=== PATIENT | male | born 1940 | race Caucasian/White ===

== ENCOUNTER 2016-07-31 08:17 | Day surgery (SDC) | payer MEDICARE, OTHER ==
[~2016-07-31 08:17] MED LIST: LISINOPRIL10 M1 PO; MULTIVITAMINS1 EAC7 PO; PROTONIX40 M2 PO; SYNTHROID50 MC1 PO
[2016-07-31 09:07] LABS: BASO % 1.2 % (0-2); BASO ABSOLUTE COUNT 0.1 tho/cmm (0.0-0.2); EOS % 3.5 % (0-7); EOSINOPHIL ABSOLUTE COUNT 0.2 tho/cmm (0.0-0.7); HCT-HEMATOCRIT 40.5 % (36.0-53.5); HGB-HEMOGLOBIN 12.9 gm/dl (13.5-17.0); IMMATURE GRANULOCYTES ABSOLUTE 0.01 tho/cmm (0-0.03); IMMATURE GRANULOCYTES PERCENT 0.2 % (0-0.3); LYMPH % 22.5 % (20-45); LYMPH ABSOLUTE COUNT 1.2 tho/cmm (0.8-4.5); MCH (MEAN CORPUSCULAR HGB) 28.2 pg (28.0-32.0); MCHC MEAN CORPUSCULAR HGB CONC 31.9 % (32.0-36.0); MCV (MEAN CELL VOLUME) 88.6 fl (82.0-96.0); MEAN PLATELET VOLUME 10.2 cmc (9.4-12.4); MONO % 11.7 % (0-12); MONOCYTE ABSOLUTE COUNT 0.6 tho/cmm (0.0-1.2); NEUTROPHIL ABSOLUTE COUNT 3.2 tho/cmm (1.6-8.0); NEUTROPHIL-AUTOMATED 3.2 tho/cmm (1.6-8.0); NEUTROPHILS % 60.9 % (40-80); PLATELET COUNT 138 tho/cmm (150-450); RED BLOOD COUNT 4.57 mil/cmm (4.40-5.70); RED CELL DISTRIBUTION WIDTH 20.5 % (12.4-16.4); WHITE BLOOD COUNT 5.2 tho/cmm (4.0-10.0)
[2016-07-31 09:10] LABS: INR 0.9 INR (0.9-1.1)
[2016-07-31 09:21] LABS: ALB/GLOB RATIO 0.7 (0.8-2.0); ALBUMIN 3.1 g/dl (3.5-5.0); ALKALINE PHOSPHATASE 175 U/L (33-138); ALT/SGPT 32 U/L (12-78); ANION GAP 10 mmol/L (0-20); AST/SGOT 36 U/L (10-40); BILIRUBIN,TOTAL 1.2 mg/dl (0.0-1.5); BLOOD UREA NITROGEN 11 mg/dl (6-24); CALCIUM 8.6 mg/dl (8.5-10.5); CARBON DIOXIDE-VENOUS 26 mmol/L (22-32); CHLORIDE 111 mmol/l (96-110); CREATININE 0.77 mg/dl (0.60-1.30); GLUCOSE 98 mg/dL (70-110); POTASSIUM 3.9 mmol/L (3.7-5.1); SODIUM 143 mmol/L (135-145); eGFR VALUE FOR BLACK >90 mL/Min
[2016-08-28] MEDS ORDERED: TYLENOL325 M2 PO (09:49)
[2016-08-28] MEDS ORDERED: CIPRO500 M2 PO (09:51)
[2016-08-28] MEDS ORDERED: MEDROL4 M1 PO (09:53)
[2016-08-28] MEDS ORDERED: OMEPRAZOLE20 M4 PO (09:54)
[2016-08-28] MEDS ORDERED: PHENERGAN PO (09:58)
[2016-08-28] MEDS ORDERED: PERCOCET 5-3251 EACH PO (10:00)
[2016-10-08] MEDS ORDERED: PERCOCET 5-3251 EACH PO (10:07)
[2016-10-08] MEDS ORDERED: ZOFRAN4 M2 PO (10:10)
[2016-10-08] MEDS ORDERED: COLACE100 M1 PO (10:12)
[2016-10-08] MEDS ORDERED: MOTRIN IB200 M1 PO (10:13)
[2016-10-08] MEDS ORDERED: MEDROL4 M1 PO (10:14)
[2016-10-08] MEDS ORDERED: CIPRO500 M2 PO (10:15)
== END 2016-07-31 15:53 ==
LOC: RADSP 08:17 → SHSB 08:18 → PACU 11:50 → SHSB 13:05
PROVIDERS: Radiology Diagnostic Radiology
PROC: B51W1ZZ Fluoroscopy of Dialysis Shunt/Fistula using Low Osmolar Contrast (ICD-10-PCS; principal; 2016-07-31)
PROC: B4121ZZ Fluoroscopy of Hepatic Artery using Low Osmolar Contrast (ICD-10-PCS; 2016-07-31)
PROC: 04L33ZZ Occlusion of Hepatic Artery, Percutaneous Approach (ICD-10-PCS; 2016-07-31)
DX: C78.7 Secondary malignant neoplasm of liver and intrahepatic bile duct (principal); I10 Essential (primary) hypertension; E03.9 Hypothyroidism, unspecified; Z79.899 Other long term (current) drug therapy; Z87.891 Personal history of nicotine dependence; Z87.11 Personal history of peptic ulcer disease; Z85.028 Personal history of other malignant neoplasm of stomach; Z90.49 Acquired absence of other specified parts of digestive tract; Z90.3 Acquired absence of stomach [part of]; Z90.89 Acquired absence of other organs; Z98.890 Other specified postprocedural states
CPT/HCPCS: A9540; C1769; C1887; J1100; J1200; J1956; J2405; Q9967